=== PATIENT | male | born 1990 | race Caucasian/White ===

== ENCOUNTER 2016-09-22 11:23 | Emergency (ER) | payer MEDICAID ==
[2016-09-22] MEDS ORDERED: HYDROCORTISONE ACETATE 25 MG SUPP.RECT PR ONE (12:39)
[2016-09-22] MEDS ORDERED: HYDROCODONE/ACETAMINOPHEN 5-325 MG 6 TAB/DSPK PO PRN (12:41)
--- NOTE | 2016-09-22 12:44 | ER Document Report ---
ED GI Bleed / Rectal Pain - General Chief Complaint: Rectal Pain Stated Complaint: RECTAL PAIN Time Seen by Provider: 09/22/16 12:19 Mode of Arrival: Ambulatory Information source: Patient Notes: 25-year-old male presents to ED for hemorrhoidal pain. This started this morning. States he has had external hemorrhoids before in the past. States he has had hemorrhoids removed in the past. TRAVEL OUTSIDE OF THE [place] IN LAST 30 DAYS: No - HPI Patient complains to provider of: Hemorrhoids Onset: This morning Timing/Duration: Intermittent Quality of pain: Throbbing Pain Level: 5 Rectal foreign body: No Associated symptoms: None Exacerbated by: Sitting, Walking Relieved by: Denies Similar symptoms previously: Yes Recently seen / treated by doctor: No - Related Data Allergies/Adverse Reactions: Penicillins Allergy (Severe, Verified 01/17/16 12:38) Anaphylaxis Past Medical History - General Information source: Patient - Social History Smoking Status: Current Every Day Smoker Cigarette use (# per day): Yes - 1/2 ppd Chew tobacco use (# tins/day): No Smoking Education Provided: Yes - less than 2 min Frequency of alcohol use: Social Drug Abuse: None Occupation: [employer] Lives with: Family Family History: Malignancy Patient has suicidal ideation: No Patient has homicidal ideation: No - Past Medical History Cardiac Medical History: Reports: None Pulmonary Medical History: Reports: None EENT Medical History: Reports: None Neurological Medical History: Reports: None Endocrine Medical History: Reports: None Renal/ Medical History: Reports: None Malignancy Medical History: Reports None GI Medical History: Reports: None Musculoskeltal Medical History: Reports None Skin Medical History: Reports None Psychiatric Medical History: Reports: None Traumatic Medical History: Reports: None Infectious Medical History: Reports: None Past Surgical History: Reports: Other - hemorroidectomy - Immunizations Immunizations up to date: Yes Review of Systems - Review of Systems Constitutional: No symptoms reported EENT: No symptoms reported Cardiovascular: No symptoms reported Respiratory: No symptoms reported Gastrointestinal: Other - external hemorrhoid Genitourinary: No symptoms reported Male Genitourinary: No symptoms reported Musculoskeletal: No symptoms reported Skin: No symptoms reported Hematologic/Lymphatic: No symptoms reported Neurological/Psychological: No symptoms reported -: Yes All other systems reviewed and negative Physical Exam - Vital signs Vitals: Temp Pulse Resp BP Pulse Ox 98.4 F 87 16 120/71 98 05/29/17 11:25 09/22/16 11:25 09/22/16 11:25 09/22/16 11:25 09/22/16 11:25 Interpretation: Normal - General General appearance: Appears well, Alert - HEENT Head: Normocephalic, Atraumatic Eyes: Normal Pupils: PERRL - Respiratory Respiratory status: No respiratory distress Chest status: Nontender Breath sounds: Normal Chest palpation: Normal - Cardiovascular Rhythm: Regular Heart sounds: Normal auscultation Murmur: No - Abdominal Inspection: Normal Distension: No distension Bowel sounds: Normal Tenderness: Nontender Organomegaly: No organomegaly - Back Back: Normal, Nontender - Extremities General upper extremity: Normal inspection, Nontender, Normal color, Normal ROM , Normal temperature General lower extremity: Normal inspection, Nontender, Normal color, Normal ROM , Normal temperature, Normal weight bearing. No: Balwinder's sign - Neurological Neuro grossly intact: Yes Cognition: Normal Orientation: AAOx4 Saba Coma Scale Eye Opening: Spontaneous Saba Coma Scale Verbal: Oriented Crescent Coma Scale Motor: Obeys Commands Crescent Coma Scale Total: 15 Speech: Normal Motor strength normal: LUE, RUE, LLE, RLE Sensory: Normal - Psychological Associated symptoms: Normal affect, Normal mood - Skin Skin Temperature: Warm Skin Moisture: Dry Skin Color: Normal Course - Vital Signs Vital signs: Temp Pulse Resp BP Pulse Ox 97.9 F 85 20 112/86 H 99 09/22/16 12:48 09/22/16 12:48 09/22/16 12:48 09/22/16 12:48 09/22/16 12:48 Discharge - Discharge Clinical Impression: External hemorrhoid Condition: Stable Disposition: HOME, SELF-CARE Additional Instructions: Hemorrhoids You have hemorrhoids. These are formed by enlargement of veins around the anus. The cause is increased pressure in the veins, from or straining at bowel movements. Hemorrhoids often cause itching and bleeding with bowel movements. When a hemorrhoid becomes clotted, severe pain and swelling result. Soothing creams and suppositories are often prescribed. Warm sitz-baths may also decrease pain, swelling, and itching. Eat a high-fiber diet. Stool softeners such as Metamucil will help. Keep the area very clean. Medicated cleansing pads (such as Tucks) are useful after bowel movements. A hose-mounted shower unit (like a shower massager at low water pressure) can be used to clean around tender hemorrhoid tags. You should call the doctor or return if you develop fever, increasing pain , or an enlarging mass around the anus, or if you simply fail to improve with treatment. Oral Narcotic Medication You have been given a dispense pack for pain control. Please use only if pain is a 4 or 5 as this will increase constipaiton and hemorrhoids This medication is a narcotic. It's best taken with food, as nausea can result if taken on an empty stomach. Don't operate machinery or drive within six hours of taking this medication. Do not combine this medicine with alcohol, or with any medication which can cause sedation (such as cold tablets or sleeping pills) unless you get permission from the physician. Narcotics tend to cause constipation. If possible, drink plenty of fluids and eat a diet high in fiber and fruits. Avoid constipation by eating a diet high in fiber, fruits, and vegetables. Drink plenty of liquids. Get regular exercise. If possible, avoid constipating medicines like narcotic pain medication. Some vitamin tablets can cause constipation. Stool softeners may be needed for difficult cases. An excellent stool softener is Konsyl which is available at [employer], [employer] drug store. Just add a teaspoon to a glass of pineapple or orange juice daily or twice a day if needed. Laxatives are useful for occasional constipation. You should use them only when necessary. Too-frequent use can make your bowels dependent on them. Some over the counter laxatives available without prescription are: Milk of Magnesia, 1-2 tablespoons twice a day Dulcolax, 5 mg pill or 10 mg suppository. Citrate of Magnesia, 4-5 ounces a day for a day or two For acute constipation, Fleet's Enemas and Dulcolax suppositories are helpful. Chronic, care home use of laxatives or enemas is not a good idea. Your bowel may become dependant on them. You do not need to have a bowel movement every day. Many people do fine with a bowel movement every three or four days. You should call your doctor or return for re-evaluation if you pass blood in the stool, or if you develop fever or increasing abdominal pain. FOLLOW-UP CARE: If you have been referred to a physician for follow-up care, call the physician s office for an appointment as you were instructed or within the next two days. If you experience worsening or a significant change in your symptoms, notify the physician immediately or return to the Emergency Department at any time for re-evaluation. Prescriptions: Hydrocortisone Acetate [Anusol Hc 25 mg Supp.rect] 1 supp.rect [place] BID #14 supp.rect Forms: Smoking Cessation Education, Return to Work Referrals: [facility] [Provider Group] - Follow up as needed
[2016-09-22 12:50] VITALS: BP 112/86
== END 2016-09-22 13:21 | disposition home or self-care (01) ==
LOC: ER 11:23
DX: K64.4 Residual hemorrhoidal skin tags (principal); K62.89 Other specified diseases of anus and rectum; F17.210 Nicotine dependence, cigarettes, uncomplicated
CPT/HCPCS: 99283; J3490

== ENCOUNTER 2018-02-26 02:08 | Emergency (ER) | payer SELFPAY ==
--- NOTE | 2018-02-26 02:38 | ER Document Report ---
ED General - General Chief Complaint: Overdose Stated Complaint: POSSIBLE OVERDOSE Time Seen by Provider: 02/26/18 02:22 Notes: Patient is a 27-year-old male who presents with complaint of an overdose. He injected what he thought was cocaine. He went apneic. Paramedics were called. They gave him a total of 10 mg of Narcan and he is now awake and alert and acting appropriately. Patient says that he was mad because he was kicked out of his house. He was not trying to kill himself. He is just tried to relax. No fevers. No vomiting. No other complaints at this time. TRAVEL OUTSIDE OF THE [place] IN LAST 30 DAYS: No - Related Data Allergies/Adverse Reactions: Penicillins Allergy (Severe, Verified 01/17/16 12:38) Anaphylaxis Past Medical History - Social History Smoking Status: Current Every Day Smoker Frequency of alcohol use: Occasional Drug Abuse: Cocaine, Heroin Family History: Malignancy Renal/ Medical History: Denies: Hx Peritoneal Dialysis Past Surgical History: Reports: Other - hemorroidectomy - Immunizations Immunizations up to date: Yes Review of Systems - Review of Systems Notes: My Normal Review Basic REVIEW OF SYSTEMS: CONSTITUTIONAL : Denies fever, chills, or sweats. Denies recent illness. CARDIOVASCULAR: Denies chest pain. RESPIRATORY: Denies cough, cold, or chest congestion. Denies shortness of breath, difficulty breathing, or wheezing. MUSCULOSKELETAL: Denies neck or back pain or joint pain or swelling. SKIN: Denies rash or skin lesions. NEUROLOGICAL: Became unresponsive. ALL OTHER SYSTEMS REVIEWED AND NEGATIVE. Physical Exam - Vital signs Vitals: Temp Pulse Resp BP Pulse Ox 97.7 F 94 16 132/83 H 100 02/26/18 02:16 02/26/18 02:16 02/26/18 02:16 02/26/18 02:16 02/26/18 02:16 - Notes Notes: General Appearance: Well nourished, alert, cooperative, no acute distress, no obvious discomfort. Vitals: reviewed, See vital signs table. Head: no swelling or tenderness to the head Eyes: PERRL, EOMI, Conjuctiva clear Lungs: No wheezing, No rales, No rhonci, No accessory muscle use, good air exchange bilaterally. Heart: Normal rate, Regular rythm, No murmur, no rub Skin: warm, dry, appropriate color, no rash Neuro: speech clear, oriented x 3, normal affect, responds appropriately to questions. Renal nerves II through XII are intact. Distal sensation intact. Patient moves all extremities without difficulty. Course - Re-evaluation Re-evalutation: 02/26/18 02:39 She is awake alert and oriented. Answers questions appropriate. Refuses IV at this time. Initially want to leave my informed him that I strongly recommend he wait at least 1 hour to make sure that when the Narcan wears off that he does not go back to having difficulty breathing or being excessively somnolent. Patient is agreeable with this and does agree to be observed for 1 hour but refuses any further workup or blood work or IVs. 02/26/18 23:33 Patient is watched for an hour and a half. He had no recurrence of hypoxemia. He is wide awake and appropriate. He continues to say that this was a one-time thing and that he has not used drugs consistently over a year. He says he will not use drugs again. The paramedics did give him Narcan injection to. I will also prescribe him more Narcan. I informed him there were happy to try to help him with resources to avoid drug use but the patient says he can do this on his own. I informed him that there are no he says he will not use drugs again that there is a strong likelihood he will based on the fact that most people use drugs in the past will eventually have another episode and therefore he should always keep the Narcan with him. I informed him were happy to help him any time and that he should return to ER immediately has any difficulty breathing, recurrent use of drugs into sleepiness or decreased arousal, or if he feels unwell. Patient agrees with plan will be discharged home. Dictation of this chart was performed using voice recognition software; therefore, there may be some unintended grammatical errors. - Vital Signs Vital signs: Temp Pulse Resp BP Pulse Ox 98.7 F 94 16 118/77 100 02/26/18 03:01 02/26/18 02:16 02/26/18 03:01 02/26/18 03:01 02/26/18 03:01 Discharge - Discharge Clinical Impression: Overdose Qualifiers: Encounter type: initial encounter Injury intent: accidental or unintentional Qualified Code(s): T50.901A - Poisoning by unspecified drugs, medicaments and biological substances, accidental (unintentional), initial encounter Condition: Good Disposition: HOME, SELF-CARE Additional Instructions: I have prescribed you Narcan. People will still potentially overdose or take too much of an opiate medication. Please keep the Narcan with you so as if you do overdose again you have a medication that can reverse the overdose so that you do not stop breathing. If you have to use the Narcan you should return to the ER immediately. Please avoid any illicit drugs or medications are not prescribed for you. Use of them can lead to . Return to ER anytime if you feel like he needed any help as were happy to help in any way we can. Prescriptions: Naloxone HCl [Narcan] 4 mg NS FEDERICO #1 spray
[2018-02-26 03:54] VITALS: BP 118/77
== END 2018-02-26 03:25 | disposition home or self-care (01) ==
LOC: ER 02:08
DX: T50.901A Poisoning by unspecified drugs, medicaments and biological substances, accidental (unintentional), initial encounter (principal); F17.200 Nicotine dependence, unspecified, uncomplicated
CPT/HCPCS: 99284

== ENCOUNTER 2019-03-06 17:40 | Emergency (ER) | payer MEDICAID ==
[2019-03-06] MEDS ORDERED: NORMAL SALINE 1000 ML 1,000 ML IV ONE (18:27)
--- NOTE | 2019-03-06 18:27 | ER Document Report ---
ED Medical Screen (RME) - General Chief Complaint: Abscess Stated Complaint: POSSIBLE ABCESS ON STOMACH Time Seen by Provider: 03/06/19 18:20 Mode of Arrival: Ambulatory Information source: Patient Notes: Patient with tender indurated area to abdomen that developed 2 days ago. Patient denies any fever. Patient does admit to history of IV drug use with last use 2 weeks ago. I have greeted and performed a rapid initial assessment of this patient. A comprehensive ED assessment and evaluation of the patient, analysis of test results and completion of the medical decision making process will be conducted by additional ED providers. TRAVEL OUTSIDE OF THE [place] IN LAST 30 DAYS: No - Related Data Allergies/Adverse Reactions: Penicillins Allergy (Severe, Verified 01/17/16 12:38) Anaphylaxis Past Medical History - Social History Frequency of alcohol use: Occasional Drug Abuse: Other Renal/ Medical History: Denies: Hx Peritoneal Dialysis Past Surgical History: Reports: Other - hemorroidectomy - Immunizations Immunizations up to date: Yes Physical Exam - Vital signs Vitals: Temp Pulse Resp BP Pulse Ox 98.0 F 117 H 20 109/64 99 03/06/19 18:08 03/06/19 18:08 03/06/19 18:08 03/06/19 18:08 03/06/19 18:08 - Abdominal Tenderness: Tender - Tender indurated area abdomen just above umbilicus Course - Vital Signs Vital signs: Temp Pulse Resp BP Pulse Ox 98.0 F 117 H 20 109/64 99 03/06/19 18:08 03/06/19 18:08 03/06/19 18:08 03/06/19 18:08 03/06/19 18:08
[2019-03-06 18:44] LABS: ABSOLUTE EOSINOPHILS # (AUTO) 0.2 10^3/uL (0.0-0.6); ABSOLUTE LYMPHOCYTES (AUTO) 1.6 10^3/uL (0.5-4.7); ABSOLUTE MONOCYTES (AUTO) 0.5 10^3/uL (0.1-1.4); BASOPHILS % (AUTO) 0.4 % (0-2); EOSINOPHILS % (AUTO) 2.3 % (0-6); HEMATOCRIT 40.3 % (37.9-51.0); HEMOGLOBIN 14.1 g/dL (13.5-17.0); LYMPHOCYTES % (AUTO) 21.9 % (13-45); MEAN CORPUSCULAR HEMOGLOBIN 33.2 pg (27.0-33.4); MEAN CORPUSCULAR HGB CONC 35.1 g/dL (32.0-36.0); MEAN CORPUSCULAR VOLUME 95 fl (80-97); MONOCYTES % (AUTO) 7.4 % (3-13); PLATELET COUNT 272 10^3/uL (150-450); RED BLOOD COUNT 4.26 10^6/uL (4.35-5.55); TOTAL CELLS COUNTED % (AUTO) 100 %; WHITE BLOOD COUNT 7.3 10^3/uL (4.0-10.5)
[2019-03-06 19:00] LABS: ANION GAP 8 (5-19); BLOOD UREA NITROGEN 11 mg/dL (7-20); CALCIUM 9.4 mg/dL (8.4-10.2); CARBON DIOXIDE 31 mmol/L (22-30); CHLORIDE 101 mmol/L (98-107); GLUCOSE 74 mg/dL (75-110); POTASSIUM 4.4 mmol/L (3.6-5.0)
[2019-03-06] MEDS ORDERED: CEPHALEXIN 500 MG CAPSULE PO ONE (23:03)
[2019-03-06] MEDS ORDERED: SULFAMETHOXAZOLE/TRIMETHOPRIM 800-160 MG TABLET PO ONE (23:03)
--- NOTE | 2019-03-06 23:29 | ER Document Report ---
ED General - General Chief Complaint: Abscess Stated Complaint: POSSIBLE ABCESS ON STOMACH Time Seen by Provider: 03/06/19 18:20 Mode of Arrival: Ambulatory Notes: 28-year-old male presents emergency department complaining of a red spot on his abdomen that appeared to 2 days ago and has rapidly gotten larger, redder and more painful. Denies any discharge, denies any injury, denies any fevers. Denies any other associated symptoms. Admits to being an IV drug user who last injected approximately a week ago. States he has never injected on his abdomen. Denies any history of MRSA. Does have family members with MRSA. TRAVEL OUTSIDE OF THE [place] IN LAST 30 DAYS: No - Related Data Allergies/Adverse Reactions: Penicillins Allergy (Severe, Verified 01/17/16 12:38) Anaphylaxis Past Medical History - General Information source: Patient - Social History Smoking Status: Current Every Day Smoker Frequency of alcohol use: Occasional Drug Abuse: Marijuana, Other - Refuses to disclose exactly what he injects. Family History: Malignancy Patient has suicidal ideation: No Patient has homicidal ideation: No Renal/ Medical History: Denies: Hx Peritoneal Dialysis Past Surgical History: Reports: Other - hemorroidectomy - Immunizations Immunizations up to date: Yes Review of Systems - Review of Systems Constitutional: Chills, Diaphoresis. denies: Fever Gastrointestinal: See HPI Skin: See HPI -: Yes All other systems reviewed and negative Physical Exam - Vital signs Vitals: Temp Pulse Resp BP Pulse Ox 98.0 F 117 H 20 109/64 99 03/06/19 18:08 03/06/19 18:08 03/06/19 18:08 03/06/19 18:08 03/06/19 18:08 Interpretation: Tachycardic - Notes Notes: GENERAL: Alert, interacts well. No acute distress. HEAD: Normocephalic, atraumatic EYES: Pupils equal, round and reactive to light, extraocular movements intact. ENT: Oral mucosa moist, tongue midline. NECK: Full range of motion, supple, trachea midline. LUNGS: Clear to auscultation bilaterally, no wheezes, rales or rhonchi, no respiratory distress. HEART: Regular rate and rhythm, no murmurs, gallops, rubs. ABDOMEN: Soft, nontender with the exception of the erythematous area, nondistended, bowel sounds present in all 4 quadrants. EXTREMITIES: Moves all 4 extremities spontaneously, no edema, radial and dorsalis pedis pulses 2/4 bilaterally. No cyanosis. NEUROLOGICAL: Alert and oriented x3, normal speech. PSYCH: Normal mood, normal affect. SKIN: Warm, Dry, area of erythema above the umbilicus with area of induration and swelling, the indurated area is approximately 1.5 cm, and the surrounding erythema is approximately 8 cm, quite mild. No discharge. Course - Re-evaluation Re-evalutation: 03/06/19 23:27 Bedside ultrasound reveals subcutaneous fluid collection, does not go through the abdominal wall, CBC unremarkable, CMP grossly unremarkable, culture was sent after I&D. Small amount of purulence was expressed. Patient started on Bactrim and Keflex. Discharged home. - Vital Signs Vital signs: Temp Pulse Resp BP Pulse Ox 98.0 F 117 H 20 109/64 99 03/06/19 18:08 03/06/19 18:08 03/06/19 18:08 03/06/19 18:08 03/06/19 18:08 - Laboratory Result Diagrams: 03/06/19 18:33 03/06/19 18:33 Laboratory results interpreted by me: 03/06/19 03/06/19 18:33 18:33 RBC 4.26 L Carbon Dioxide 31 H Glucose 74 L Procedures - Incision and Drainage Mid- Abdomen Type: Simple, Single Anesthetic type: 1% Lidocaine mL's of anesthetic: 3 Blade size: 11 I&D procedure: Chlorprep applied Incision Method: Incision made by scalpel Amount/type of drainage: Mostly blood, some purulence. Notes: 03/06/19 23:28 Loculations broken up by blunt dissection. Discharge - Discharge Clinical Impression: Cutaneous abscess of abdominal wall Condition: Stable Disposition: HOME, SELF-CARE Additional Instructions: Post Incision and Drainage You have had an incision made to allow drainage of an abscess. The incision must remain open so that pus and debris can drain from the wound. If the abscess cavity is large, packing is placed. This keeps the tissues from collapsing and trapping pus inside, while the body shrinks the cavity. The packing may need to be replaced every day or two. The physician will instruct you on the packing. Keep a bulky dressing over the area. Replace it if it becomes saturated with blood or pus. Do not disturb the packing (if present). You may shower and cleanse the area with gentle soap and warm water two or three times a day. Local warmth may be soothing, and may promote faster healing. Return if you develop high fever or chills, or if you note spreading red ness, increasing swelling, or increasing tenderness. Epsom Salt Soaks Soak the wound area in a container of warm epsom salt water. If you can't get the wound area into a bucket or ruiz, use a folded towel soaked in the epsom salt solution and apply to the area. Use clean hot tap water (about the temperature of a very warm bath), mixing in about one (1) teaspoon for every pint of water. Two gallon --> 16 teaspoons Epsom Salts One gallon --> 8 teaspoons Epsom Salts Two quarts --> 4 teaspoons Epsom Salts One quart --> 2 teaspoons Epsom Salts Soak the wound for about 20 minutes while gently moving it around in the water. Repeat this four (4) times a day. Prescriptions: Sulfamethoxazole/Trimethoprim [Bactrim Ds Tablet] 1 each PO BID #14 tablet Cephalexin Monohydrate [Keflex 500 mg Capsule] 1,000 mg PO BID #28 capsule
[2019-03-07 00:22] VITALS: BP 110/58
== END 2019-03-06 23:50 | disposition home or self-care (01) ==
LOC: ER 17:40
DX: L02.211 Cutaneous abscess of abdominal wall (principal); R68.83 Chills (without fever); R61 Generalized hyperhidrosis; F17.200 Nicotine dependence, unspecified, uncomplicated; F12.10 Cannabis abuse, uncomplicated; Z20.818 Contact with and (suspected) exposure to other bacterial communicable diseases; Z87.892 Personal history of anaphylaxis; Z88.0 Allergy status to penicillin
CPT/HCPCS: 36415; 87070; 87205; 85025; 80048; 10060; J3490; 87077

== ENCOUNTER 2019-05-17 20:02 | Emergency (ER) | payer MEDICAID ==
[2019-05-17] MEDS ORDERED: NALOXONE HCL INJ 2 MG/2 ML DISP.SYRIN ONE (20:08)
[2019-05-17] MEDS ORDERED: NALOXONE HCL INJ 2 MG/2 ML DISP.SYRIN IM ONE (20:10)
[2019-05-17] MEDS ORDERED: NORMAL SALINE 1000 ML 1,000 ML IV ONE (20:13)
--- NOTE | 2019-05-17 20:15 | ER Document Report ---
ED General - General Stated Complaint: POSSIBLE OVERDOSE Time Seen by Provider: 05/17/19 20:10 Mode of Arrival: Stretcher Information source: Law Enforcement Cannot obtain history due to: Uncooperative Notes: 28-year-old male was found unconscious in the lobby of the emergency department bathroom. Medical alert was called and staff responded. Patient was brought on stretcher to the emergency department and placed in trauma bed bay 1. Patient was having loud snoring with slow respiratory rate and loud snoring. Prior to getting to the emergency department patient was given an IM injection of Narcan 2 mg. Once inside the trauma bay as patient was being transferred from the [place] to the to the trauma bay bed patient suddenly awakened set up but both upright and started talking. Patient was confused at the time of his whereabouts and eventually settled down to understand that he was in the emergency department. At this time he was unsure as to how he ended up with us and stated that he did not really know how he ended up in the emergency room. Patient admits that he has been drinking alcohol all day and also admits to IV use o narcotics. Patient is still uncooperative at this time and prefers to put on his jacket, and stands up in the room refusing to get back on a gurney at this time. Enforcement is in place is patient this time is basically refusing further care. I spoke to patient explained to him what was going on in terms of his use of IV narcotics which caused our involvement to resuscitate him chemically with Narcan which returned his respiratory and alert state back to normal. Patient at this time does not show any signs of any consequence at the moment of his IV drug use. Splane the patient that the antidote Narcan might wear off before the potency of his IV drug use. Additional information learned about patient's presentation to the hospital ED patient was noted to walk into the emergency department on his own after being dropped off by whoever dropped him off. Patient walked to the bathroom and staff at the greatest is noted that patient was having some rambling noise going on in the bathroom and then all of the noise activity ceased. Therefore they called security to investigate what was going on in the bathroom. Security open the door and the patient was in the stall lying on the floor and having paraphernalia IV drug use with a needle and syringe on the floor. Patient was then placed on a gurney and transported to the ED. Prior to arrival he had been given an IM shot of Narcan. As stated earlier by the time he arrived to the emergency department he was snoring with very slow respirations. And then spontaneously awakened sat upright and began talking. Patient is reservist to who brought him here or how he got here in is not very in informing us of what he has been using today. Patient admits that we obviously know he has been doing narcotics based on the antidote that we have given him. Updated information on presentation. 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 And subject patient got out of the car and went into the hospital lobby and went straight to the bathroom. So the intention was to come chicken picker someone in the emergency department and subject went directly to the to the bathroom and started using IV drug heroin. TRAVEL OUTSIDE OF THE [place] IN LAST 30 DAYS: No - HPI Onset: Other - Patient states that he has been drinking beer all day today. He also admits to IV use of narcotics. Onset/Duration: Sudden Quality of pain: No pain Severity: Severe Pain Level: 0 Associated symptoms: Other - Near respiratory arrest, with severe slowed respirations to a snoring state. Unconscious to stimuli. Exacerbated by: Other - Patient was a within minutes of just having IV drug use in our department in the bathroom. Similar symptoms previously: Yes - Unknown if patient has had events of this nature before Recently seen / treated by doctor: No - Related Data Allergies/Adverse Reactions: Penicillins Allergy (Severe, Verified 01/17/16 12:38) Anaphylaxis Past Medical History - General Information source: Patient - Social History Smoking Status: Current Every Day Smoker Frequency of alcohol use: Dates he had been drinking beer all day today Drug Abuse: Other - Narcotic drug use Lives with: Family, Parents Family History: Malignancy Renal/ Medical History: Denies: Hx Peritoneal Dialysis Past Surgical History: Reports: Other - hemorroidectomy - Immunizations Immunizations up to date: Yes Review of Systems - Review of Systems -: Yes All other systems reviewed and negative Physical Exam - Vital signs Vitals: Vital signs stable Interpretation: Normal Notes: On arrival snoring with slowed respirations. Then an immediate responsive awake state and confusion. Patient was paranoid as to where he was and what was going on at the time. Patient was comforted by information to explain that he was unconscious secondary to using IV drugs in the in the bathroom. And patient eventually realized what it happened and his whereabouts. - General General appearance: Appears well, Alert - HEENT Head: Normocephalic, Atraumatic Eyes: Normal Pupils: PERRL - Respiratory Respiratory status: No respiratory distress Chest status: Nontender Breath sounds: Normal Chest palpation: Normal - Cardiovascular Rhythm: Regular Heart sounds: Normal auscultation Murmur: No - Abdominal Inspection: Normal Distension: No distension Bowel sounds: Normal Tenderness: Nontender Organomegaly: No organomegaly - Back Back: Normal, Nontender - Extremities General upper extremity: Normal inspection, Nontender, Normal color, Normal ROM, Normal temperature General lower extremity: Normal inspection, Nontender, Normal color, Normal ROM, Normal temperature, Normal weight bearing. No: Balwinder's sign - Neurological Neuro grossly intact: Yes Cognition: Normal Orientation: AAOx4 [place] Coma Scale Eye Opening: Spontaneous [place] Coma Scale Verbal: Oriented [place] Coma Scale Motor: Obeys Commands [place] Coma Scale Total: 15 Speech: Normal Motor strength normal: LUE, RUE, LLE, RLE Sensory: Normal - Psychological Associated symptoms: Normal affect, Normal mood, Aggressive, Agitated, Angry, Other - Initially he was aggressive and angry and agitated. - Skin Skin Temperature: Warm Skin Moisture: Dry Skin Color: Normal Notes: IVUs track wright was noted on upper extremities. No open wounds or any skin abscess noted. Course - Re-evaluation Re-evalutation: 05/17/19 22:19 Patient's mother has arrived and has provide more comfort to patient. Patient's much more informative about discussions of what happened today, and he reports that a actually is using less IV drug use that he has had in the past. States he is not suicidal homicidal. Denies intention to involve himself in rehab. Patient has stopped drugs on his own without rehab services in the past. Currently pending urine drug screen. Once all labs has been resulted patient will be discharged home with his mother. 05/17/19 22:40 Patient is hemodynamically stable alert walking talking not showing any signs of decreased arousal state or decreased respiratory rate. Patient is accompanied with his mother at this time who will be discharged home with mother supervision. - Laboratory Result Diagrams: 05/17/19 20:05 05/17/19 20:05 Laboratory results interpreted by me: 05/17/19 05/17/19 05/17/19 20:05 20:05 21:43 WBC 16.0 H Absolute Neuts (auto) 10.7 H BUN 6 L Glucose 143 H Urine Protein 100 H Salicylates < 1.0 L Acetaminophen < 10 L Leukocytosis noted on laboratories is consistent with the stress that patient went through prior to arrival to the emergency department trauma bay. Patient has had a acute IV self medicated overdose of drugs. - Diagnostic Test Radiology reviewed: Image reviewed, Reports reviewed Radiology results interpreted by me: 05/17/19 22:18 Chest x-ray did not show any acute process. - EKG Interpretation by Me Additional EKG results interpreted by me: 05/17/19 22:18 Patient refused twelve-lead EKG. Patient was initially on the strap maker showing a normal sinus rhythm without any acute changes. Discharge - Discharge Clinical Impression: Accidental drug overdose Condition: Stable Disposition: HOME, SELF-CARE Additional Instructions: Drug Effects Your unpleasant symptoms are due to a drug you're taking. These symptoms are a common side effect of the medicine. It's not a true allergy. We stop any unnecessary drugs when bothersome side effects occur. Sometimes we'll substitute a different type of drug. In other cases, we must continue the drug. If so, we try to find a way to decrease the side effects. Many side effects decrease with time. Call us if the symptoms don't go away. Today you had a drug overdose. Today he had a drug overdose. Results of labs show that you used IV cocaine and amphetamines. There was no narcotic was found in the urine drug screen. Alcohol level shows that you had been using alcohol today as well. Inasmuch as you denies suicidal or homicidal ideations or any need for mental health counseling we strongly recommend that you to seek additional help. Return to the emergency department if needed. Recommend follow-up with [facility] [place] mental [facility]
[2019-05-17 20:26] LABS: ABSOLUTE BASOPHILS # (AUTO) 0.1 10^3/uL (0.0-0.2); ABSOLUTE EOSINOPHILS # (AUTO) 0.2 10^3/uL (0.0-0.6); ABSOLUTE LYMPHOCYTES (AUTO) 4.2 10^3/uL (0.5-4.7); ABSOLUTE MONOCYTES (AUTO) 0.8 10^3/uL (0.1-1.4); ABSOLUTE NEUT (AUTO) 10.7 10^3/uL (1.7-8.2); BASOPHILS % (AUTO) 0.6 % (0-2); EOSINOPHILS % (AUTO) 1.1 % (0-6); HEMOGLOBIN 14.1 g/dL (13.5-17.0); LYMPHOCYTES % (AUTO) 26.5 % (13-45); MEAN CORPUSCULAR HEMOGLOBIN 31.1 pg (27.0-33.4); MEAN CORPUSCULAR HGB CONC 33.6 g/dL (32.0-36.0); MEAN CORPUSCULAR VOLUME 93 fl (80-97); MONOCYTES % (AUTO) 4.8 % (3-13); PLATELET COUNT 292 10^3/uL (150-450); RED BLOOD COUNT 4.54 10^6/uL (4.35-5.55); RED CELL DISTRIBUTION WIDTH 13.2 % (11.5-14.0); TOTAL CELLS COUNTED % (AUTO) 100 %
[2019-05-17 20:42] LABS: ALBUMIN 4.4 g/dL (3.5-5.0); ALCOHOL 174 mg/dL (NONE DETECTED); ALKALINE PHOSPHATASE 76 U/L (38-126); ANION GAP 13 (5-19); ASPARTATE AMINO TRANSFERASE 53 U/L (17-59); BILIRUBIN,DIRECT 0.3 mg/dL (0.0-0.4); BILIRUBIN,TOTAL 0.3 mg/dL (0.2-1.3); BLOOD UREA NITROGEN 6 mg/dL (7-20); CALCIUM 9.2 mg/dL (8.4-10.2); CARBON DIOXIDE 23 mmol/L (22-30); CHLORIDE 107 mmol/L (98-107); GLUCOSE 143 mg/dL (75-110); POTASSIUM 4.3 mmol/L (3.6-5.0); TOTAL PROTEIN 7.9 g/dL (6.3-8.2)
[2019-05-17 20:44] LABS: ACETAMINOPHEN < 10 ug/mL (10-30); SALICYLATE < 1.0 mg/dL (2.0-20.0)
--- NOTE | 2019-05-17 20:45 | RADIOLOGY REPORT (SQ) ---
EXAM DESCRIPTION: X-RAY CHEST ONE VIEW CLINICAL HISTORY: 28 years, Male, altered mental status COMPARISON: None. FINDINGS: Portable upright chest at 2023 hours on 05/17/2019. The lungs are overinflated and clear. The costophrenic angles are sharp. The cardiac silhouette, hilar regions, trachea, soft tissues and bony structures are unremarkable. IMPRESSION: No acute cardiopulmonary disease. Overinflated lungs.
[2019-05-17 20:53] LABS: NT PRO BNP 37 pg/mL (<125)
[2019-05-17 20:54] LABS: TROPONIN I < 0.012 ng/mL
[2019-05-17 22:09] LABS: APPEARANCE,URINE CLEAR; BILIRUBIN,URINE NEGATIVE (NEGATIVE); COLOR,URINE YELLOW; GLUCOSE, URINE NEGATIVE (NEGATIVE); KETONES,URINE NEGATIVE (NEGATIVE); LEUKOCYTE ESTERASE,URINE NEGATIVE (NEGATIVE); NITRITE,URINE NEGATIVE (NEGATIVE); PROTEIN,URINE 100 mg/dL (NEGATIVE); URINE SPECIFIC GRAVITY 1.009; UROBILINOGEN,URINE NEGATIVE mg/dL (<2.0)
[2019-05-17 22:25] LABS: URINE BARBITURATES SCREEN NEGATIVE; URINE BENZODIAZEPINES SCREEN NEGATIVE; URINE MARIJUANA (THC) SCREEN NEGATIVE; URINE METHADONE SCREEN NEGATIVE; URINE PHENCYCLIDINE SCREEN NEGATIVE
[2019-05-17 22:26] LABS: URINE AMPHETAMINES SCREEN UNCONFIRMED POSITIVE; URINE COCAINE SCREEN UNCONFIRMED POSITIVE
[2019-05-17 22:44] VITALS: BP 157/80
== END 2019-05-17 22:15 | disposition home or self-care (01) ==
LOC: ER 20:02
DX: T40.601A Poisoning by unspecified narcotics, accidental (unintentional), initial encounter (principal); F19.10 Other psychoactive substance abuse, uncomplicated; F10.10 Alcohol abuse, uncomplicated; R41.0 Disorientation, unspecified; F17.200 Nicotine dependence, unspecified, uncomplicated; Y92.9 Unspecified place or not applicable
CPT/HCPCS: 99284; 96372; 36415; 80307 ×4; 83690; 85025; 80053; 81001; 84484; 83880; 71045; J2310